=== PATIENT | male | born 2000 | race Two or more races ===

== ENCOUNTER 2024-09-28 01:47 | Emergency (ER) | payer MEDICAID, OTHER ==
[~2024-09-28] VITALS: Ht 162.6 cm; Wt 77.3 kg
[2024-09-28 02:31] VITALS: BP 140/78; PULSE 116; RESP 18; TEMP 98.6; O2SAT 100
[2024-09-28] MEDS: LIDOCAINE 1% HCL (LOCAL ANESTH.) INJ 20ML MDV ONE (03:12)
[2024-09-28] MEDS: SODIUM CHLORIDE 0.9% 1,000 ML IV ONE (03:25)
[2024-09-28] MEDS ORDERED: ACET500T58 PO (03:27)
[2024-09-28] MEDS ORDERED: CEPH500C PO (03:27)
--- NOTE | 2024-09-28 03:32 | ED.PDOC ---
HPI Comments 24-YEAR-OLD MALE PRESENTS TO ER WITH COMPLAINTS OF LACERATION TO RIGHT FOREARM X1 DAY. PATIENT PRESENTS VIA EMS, REPORTING THAT HE WAS DRINKING ALCOHOL TODAY AND THEN PUNCHED A MIRROR WITH HIS RIGHT ARM AND SUSTAINED LACERATION TO RIGHT FOREARM AT THAT TIME. HE REPORTS 10/10 PAIN LOCALIZED TO LACERATION OF RIGHT FOREARM. NOTES HE WAS UP-TO-DATE ON HIS TETANUS SHOT AND PRESENTS TO ER ALERT AND ORIENTED X4, IN NO DISTRESS. DENIES NUMBNESS/TINGLING, FOREIGN BODY SENSATION OR ANY FURTHER SYMPTOMS/COMPLAINTS Chief Complaint: Laceration Time Seen by MD: 02:07 Primary Care Provider: UNKNOWN Reviewed Notes: Nurses Notes, Medications, Allergies Allergies: Coded Allergies: NO KNOWN ALLERGIES (Unverified , 09/28/24) Home Meds Active Scripts Cephalexin Monohydrate (Cephalexin) 500 Mg Cap, 1 CAP PO BID for 7 Days, #14 CAP 0 Refills Prov:QUINTON NGUYEN 09/28/24 Acetaminophen (Acetaminophen) 500 Mg Tab, 500 MG PO Q4HPRN, #30 TAB 0 Refills Prov:QUINTON NGUYEN 09/28/24 Information Source: Patient Mode of Arrival: EMS Complexity: Intermediate Laceration Length (cm): 7 Skin Type: Irregular Past Medical History PAST MEDICAL HISTORY: [place] Surgical History: Denies all surgeries Family History Family History: Unknown Social History Smoker: Non-Smoker Alcohol: Heavy Drugs: Denies Drug Use Lives In: Home Constitutional: denies: chills, diaphoresis, fatigue, fever, malaise, sweats, weakness, others EENTM: denies: blurred vision, double vision, ear bleeding, ear discharge, ear drainage, ear pain, ear ringing, eye pain, eye redness, hearing loss, mouth pain, mouth swelling, nasal discharge, nose bleeding, nose congestion, nose pain, photophobia, tearing, throat pain, throat swelling, voice changes, others Respiratory: denies: cough, hemoptysis, orthopnea, SOB at rest, shortness of breath, SOB with excertion, stridor, wheezing, others Cardiovascular: denies: chest pain, dizzy spells, diaphoresis, Dyspnea on exertion, edema, irregular heart beat, left arm pain, lightheadedness, palpitations, PND, syncope, others Gastrointestinal: denies: abdomen distended, abdominal pain, blood streaked bowels, constipated, diarrhea, dysphagia, difficulty swallowing, hematemesis, melena, nausea, poor appetite, poor fluid intake, rectal bleeding, rectal pain, vomiting, others Genitourinary: denies: burning, dysuria, flank pain, frequency, hematuria, incontinence, penile discharge, penile sore, pain, testicle pain, testicle swelling, urgency, others Neurological: denies: dizziness, fainting, headache, left sided numbness, left sided weakness, numbness, paresthesia, pre-existing deficit, right sided numbness, right sided weakness, seizure, speech problems, tingling, tremors, weakness, others Musculoskeletal: denies: back pain, gout, joint pain, joint swelling, muscle pain, muscle stiffness, neck pain, others Integumetry: reports: others ( STATED IN HPI) Allergic/Immunocompromised: denies: Difficulty Healing, Frequent Infections, Hives, Itching, others Hematologic/Lymphatic: denies: anemia, blood clots, easy bleeding, easy bruising, swollen glands, others Endocrine: denies: excessive hunger, excessive sweating, excessive thirst, excessive urination, flushing, intolerance to cold, intolerance to heat, unexplained weight gain, unexplained weight loss, others Psychiatric: denies: anxiety, bipolar disorder, depression, hopeless, panic disorder, schizophrenia, sleepless, suicidal, others Physical Exam General Appearance: No Apparent Distress HEENT: PERRL/EOMI, TMs Normal Neck: Full Range of Motion, Non-Tender, Normal Respiratory: Chest Non-Tender, Lungs Clear, No Accessory Muscle Use, No Respiratory Distress, Normal Breath Sounds Cardiovascular: No Murmur, No Gallop, Regular Rate/Rhythm Breast Exam: Deferred Gastrointestinal: NOT DONE Genitalia: Deferred Pelvic: Deferred Rectal: Deferred Extremities: Normal capillary refill, Normal range of motion Neurologic: Alert, physical therapist center manager II-XII nml as Tested, No Motor Deficits, Normal Affect, Normal Mood, No Sensory Deficits Cerebellar Function: Normal Reflexes: Normal Skin: Dry, Warm Peripheral Pulses: 2+ Radial (R), 2+ Radial (L), 2+ Brachial (R), 2+ Brachial (L) Lymphatic: No Adenopathy Was a procedure done? Was a procedure done?: Yes Sedation Sedation?: No Laceration Repair : Location RIGHT FOREARM Length 7 CM Anesthetic: Lidocaine (1%), Without epi Laceration Repair Prep: Saline (AND PEROXIDE), by Irrigation (HEAVILY IRRIGATED WITHOUT ANY SIGNS OF FOREIGN BODY) Laceration Repair Wound Comple: epidermis/dermis repair Laceration Repair: Number of sutures (7 PLACED, PATIENT TOLERATED WELL WITHOUT ANY COMPLICATION), Size (3-0), Nylon, Simple, Non-adherent gauze Informed consent obtained: Yes Risks, benefits, and alternati: Yes Images 1 - 7 CM LACERATION TO RIGHT FOREARM NOTED. SLIGHT TTP/ERYTHEMA/SWELLING LOCALIZED TO WOUND EDGES. NO FOREIGN BODY/FURTHER SKIN CHANGES NOTED. PATIENT ABLE TO FULLY MOVE RIGHT ELBOW AND ALL FINGERS OF RIGHT HAND. PULSES INTACT. DIESEL SERVICE TECHNICIAN STRENGTH INTACT AND EQUAL BILATERALLY Differential diagnosis Generic Laceration: Fracture, Retained Foriegn Body, Neurovascular Injury, Tendon Injury X-Ray, Labs, Meds, VS Vital Signs Date Time Temp Pulse Resp B/P (MAP) Pulse Ox O2 Delivery O2 Flow Rate FiO2 09/28/24 02:31 98.6 116 18 140/78 (98) 100 98.6 09/28/24 01:54 98.6 116 18 140/78 (98) 100 Lab Test 09/28/24 03:18 Range/Units Plasma/Serum Blood Alcohol 230.3 H <10 mg/dL Current Medications Medications (Trade) Dose Ordered Sig/Eva Route Start Time Stop Time Status Last Admin Sodium Chloride 1,000 ml @ 1,000 mls/hr Q1H ONCE IV 09/28/24 03:00 09/28/24 03:59 DC 09/28/24 03:25 BLOOD ALCOHOL 230.3 - REVIEWED HEP-LOCK IV ORDERED NS 1 L IV ORDERED WOUND CARE/CLEANING DISCUSSED AND ADVISED ETOH CESSATION DISCUSSED AND ADVISED PATIENT HAD IMPROVEMENT IN SYMPTOMS, ABLE TO AMBULATE COMMUNITY INDEPENDENTLY AND IN NO DISTRESS PRIOR TO DISCHARGE ADVISED TO F/U IN 2 DAYS FOR WOUND CHECK ADVISED TO F/U IN 10-14 DAYS FOR REMOVAL OF SUTURES ADVISED TO F/U WITH PCP IN 1-2 DAYS PATIENT ALERT AND ORIENTED X4 PRIOR TO DISCHARGE. PATIENT VERBALIZED UNDERSTANDING AND AGREEABLE WITH CURRENT PLAN OF CARE ADVISED TO RETURN TO ER IMMEDIATELY IF SYMPTOMS WORSEN Time of 1ST Reevaluation: 03:22 Reevaluation 1ST: N/A Time of 2ND Reevaluation: 04:12 Reevaluation 2ND: Improved Patient Education/Counseling: Diagnosis, Treatment, Prognosis, Need For Follow Up Family Education/Counseling: No Family Present Departure 1 Departure Time of Disposition: 04:14 Impression: Primary Impression: Laceration of forearm, right Qualified Codes: S51.811A - Laceration without foreign body of right forearm, initial encounter Disposition: HOME / SELF CARE / HOMELESS Condition: Stable e-Prescriptions Cephalexin Monohydrate (Cephalexin) 500 Mg Cap 1 CAP PO BID for 7 Days, #14 CAP 0 Refills Prov: QUINTON NGUYEN 09/28/24 Acetaminophen (Acetaminophen) 500 Mg Tab 500 MG PO Q4HPRN, #30 TAB 0 Refills Prov: QUINTON NGUYEN 09/28/24 Discharged With: Significant Other Critical Care Note Critical Care Time?: No Stability Stability form required: No Heart Score Heart Score: Heart Score Response (Comments) Value History N/A 0 EKG N/A 0 Age N/A 0 Risk Factors N/A 0 Troponin N/A 0 Total 0 QUINTON NGUYEN Sep 28, 2024 03:32
== END 2024-09-28 05:59 | disposition home or self-care (01) ==
LOC: ER 01:47 → EDBD 01:47 → ER 05:59
DX: S51.811A Laceration without foreign body of right forearm, initial encounter (principal); I25.2 Old myocardial infarction; Z79.899 Other long term (current) drug therapy; W25.XXXA Contact with sharp glass, initial encounter; Y93.89 Activity, other specified; Y92.89 Other specified places as the place of occurrence of the external cause; Y99.8 Other external cause status
CPT/HCPCS: 12002; 36415; 80320; 96360; 99283; J2003; J7030